=== PATIENT | female | born 1985 | race Caucasian/White ===

== ENCOUNTER 2018-09-16 11:59 | Inpatient (IN) | payer MEDICAID ==
[2018-09-16] MEDS ORDERED: Nalbuphine 10 MG/1 ML Vial IVPUSH PRN (12:18)
[2018-09-16] MEDS ORDERED: Ondansetron 4 MG/2 ML SDV IVPUSH PRN (12:18)
[2018-09-16] MEDS ORDERED: Sodium Chloride 0.9% 10 ML Syringe FLUSH PRN (12:18)
[2018-09-16] MEDS ORDERED: Oxytocin/Lactated Ringers 10 UNIT/1,000 ML BAG IV SCH ×2 (12:30)
--- NOTE | 2018-09-16 12:40 | PCM.LDHP ---
L&D History of Present Illness - General Date of Service: 09/16/18 Admit Problem/Dx: Patient Status Order with Admit Dx/Problem 09/16/18 12:18 Patient Status [ADT] Routine Admission Diagnosis/Problem Admission Diagnosis/Problem Normal in third trimester Source of Information: Patient History Limitations: Reports: No Limitations - History of Present Illness Introduction:: Patient is a 32 y/o at 39 0/7 wks who presents for elective IOL. Doing well this . No issues or concerns. Notes good FM. No other issues. 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: , Therapeutic : 4 Para: 2 LMP (Approximate): Psychiatric History: Reports: Anxiety - Infectious Disease History Infectious Disease History: Reports: Herpes (Denies any signs of outbreak) - Past Surgical History Female Surgical History: Reports: Other (See Below) (breast biopsy) Social & Family History - Tobacco Use Smoking Status *Q: Former Smoker Tobacco Use Within Last Twelve Months: Cigarettes - Caffeine Use Caffeine Use: Reports: Coffee - Alcohol Use Alcohol Use History: No - Recreational Drug Use Drug Use in Last 12 Months: No Recreational Drug Type: Reports: Heroin (Last use in 2012) H&P Review of Systems - Review of Systems: Review Of Systems: See Below General: Reports: No Symptoms Pulmonary: Reports: No Symptoms Cardiovascular: Reports: No Symptoms Gastrointestinal: Reports: No Symptoms Genitourinary: Reports: No Symptoms Musculoskeletal: Reports: No Symptoms Psychiatric: Reports: No Symptoms Neurological: Reports: No Symptoms L&D Exam - Exam Exam: See Below - OB Specific Contraction Intensity: Irritability Movement: Active Heart Tones: Present Heart Tones per Min: 140 Heart Rate (FHR) Variability: Moderate (6-25 bmp) Presentation: Vertex - Tejeda Score Tejeda Score Cervix Position: Midposition Tejeda Score Consistency: Soft Tejeda Score Effacement: 51-70% Tejeda Score Dilation: 3-4 cm Tejeda Score Infant's Station: -2 Tejeda Score Total: 8 - Exam General: Alert, Oriented, Cooperative Lungs: Clear to Auscultation, Normal Respiratory Effort Cardiovascular: Regular Rate, Regular Rhythm GI/Abdominal Exam: Soft, Non-Tender Genitourinary: Normal external exam Extremities: Normal Inspection Skin: Warm, Dry, Intact - Problem List (1) 39 weeks gestation of SNOMED Code(s): 28457787 ICD Code: Z3A.39 - 39 WEEKS GESTATION OF Status: Acute Current Visit: Yes (2) complicated by subutex maintenance, antepartum SNOMED Code(s): 26698432 ICD Code: O99.320 - DRUG USE COMPLICATING , UNSPECIFIED TRIMESTER; F11.20 - OPIOID DEPENDENCE, UNCOMPLICATED Status: Acute Current Visit: Yes (3) History of herpes genitalis SNOMED Code(s): 838675265 ICD Code: Z86.19 - PERSONAL HISTORY OF OTHER INFECTIOUS AND PARASITIC DISEASES Status: Acute Current Visit: Yes Problem List Initiated/Reviewed/Updated: Yes Orders Last 24hrs: Active Orders 24 hr Category Date Time Status Patient Status [ADT] Routine ADT 09/16/18 12:18 Ordered Activity as Tolerated [RC] PFP Care 09/16/18 12:18 Ordered Communication Order [RC] ASDIRECTED Care 09/16/18 12:18 Ordered Communication Order [RC] ASDIRECTED Care 09/16/18 12:18 Ordered Communication Order [RC] ASDIRECTED Care 09/16/18 12:18 Ordered Heart Tones [RC] ASDIRECTED Care 09/16/18 12:18 Ordered Non Stress Test [RC] PER UNIT ROUTINE Care 09/16/18 12:18 Ordered Notify Provider [RC] ASDIRECTED Care 09/16/18 12:18 Ordered Notify Provider [RC] PFP Care 09/16/18 12:18 Ordered Notify Provider [RC] PRN Care 09/16/18 12:18 Ordered Peripheral IV Care [RC] . DIRECTED Care 09/16/18 12:18 Ordered Vaginal Exam [RC] ASDIRECTED Care 09/16/18 12:18 Ordered Vital Signs [RC] PER UNIT ROUTINE Care 09/16/18 12:18 Ordered Regular Diet [DIET] Diet 09/16/18 Lunch Ordered CBC W/O DIFF,HEMOGRAM [HEME] Routine Lab 09/16/18 12:18 Ordered RAPID PLASMA REAGIN,RPR [CHEM] Routine Lab 09/16/18 12:18 Ordered TYPE AND SCREEN [BBK] Routine Lab 09/16/18 12:18 Ordered Lactated Ringers [Ringers, Lactated] 1,000 ml Med 09/16/18 12:30 Ordered IV ASDIRECTED Nalbuphine [Nubain] Med 09/16/18 12:18 Ordered 10 mg IVPUSH Q2H PRN Ondansetron [Zofran] Med 09/16/18 12:18 Ordered 4 mg IVPUSH Q4H PRN Oxytocin/Lactated Ringers [Pitocin in LR 10 Units/1,000 Med 09/16/18 12:30 Ordered ML] 10 unit in 1,000 ml IV .CONTINUOUS Oxytocin/Lactated Ringers [Pitocin in LR 10 Units/1,000 Med 09/16/18 12:30 Ordered ML] 10 unit in 1,000 ml IV TITRATE Sodium Chloride 0.9% [Saline Flush] Med 09/16/18 12:18 Ordered 10 ml FLUSH ASDIRECTED PRN Electronic Heart Tones Ext w TOCO [WOMSER] Oth 09/16/18 12:18 Ordered Routine Electronic Heart Tones Internal [WOMSER] Per Unit Oth 09/16/18 12:18 Ordered Routine Peripheral IV Insertion Adult [OM.PC] Routine Oth 09/16/18 12:18 Ordered Resuscitation Status Routine Resus Stat 09/16/18 12:18 Ordered Medication Orders Lactated Ringer's (Ringers, Lactated) 1,000 mls @ 100 mls/hr IV ASDIRECTED ELROY Oxytocin/Lactated Ringer's (Pitocin In Lr 10 Units/1,000 Ml) 10 unit in 1,000 mls @ 500 mls/hr IV .CONTINUOUS ELROY Oxytocin/Lactated Ringer's (Pitocin In Lr 10 Units/1,000 Ml) 10 unit in 1,000 mls @ 12 mls/hr IV TITRATE ELROY; Protocol Nalbuphine HCl (Nubain) 10 mg IVPUSH Q2H PRN PRN Reason: Pain Ondansetron HCl (Zofran) 4 mg IVPUSH Q4H PRN PRN Reason: Nausea/Vomiting Sodium Chloride (Saline Flush) 10 ml FLUSH ASDIRECTED PRN PRN Reason: Keep Vein Open Assessment/Plan Comment:: 32 y/o at 39 0/7 wks who presents for IOL * Labs * GBS negative, no need for antibiotics * Pitocin and AROM for IOL * Denies signs/symptoms of HSV outbreak * Pain management per patient preference * Anticipate * Aware baby will need monitoring for history of Subutex use
[2018-09-16] MEDS: Lactated Ringers 1,000 ML IV SCH ×3 (13:10→18:23)
[2018-09-16] MEDS ORDERED: fentaNYL 100 MCG/2 ML SDV IVPUSH ONE (15:26)
[2018-09-16] MEDS ORDERED: Bupivacaine/fentaNYL/NS 100 ML Bag EPIDUR SCH (15:30)
--- NOTE | 2018-09-16 16:07 | PCM.POSTAN ---
POST ANESTHESIA ASSESSMENT - MENTAL STATUS Mental Status: Alert - RESPIRATORY Respiratory Status: Respiratory Rate WNL, Airway Patent, O2 Saturation Stable - CARDIOVASCULAR CV Status: Pulse Rate WNL, Blood Pressure Stable - GASTROINTESTINAL GI Status: No Symptoms - POST OP HYDRATION Hydration Status: Adequate & Stable
--- NOTE | 2018-09-16 16:07 | PCM.PREANE ---
Preanesthetic Assessment - Anesthesia/Transfusion/Family Hx Anesthesia History: Prior Anesthesia Without Reaction Family History of Anesthesia Reaction: No Transfusion History: No Prior Transfusion(s) Intubation History: Unknown - Review of Systems General: No Symptoms Pulmonary: No Symptoms Cardiovascular: No Symptoms Gastrointestinal: No Symptoms Neurological: No Symptoms Other: Reports: None - Physical Assessment Height: 1.68 m Weight: 78.018 kg Mental Status: Alert & Oriented x3 Airway Class: Mallampati = 2 Dentition: Reports: Normal Dentition ROM/Head Extension: Full Lungs: Clear to Auscultation, Normal Respiratory Effort Cardiovascular: Regular Rate, Regular Rhythm, No Murmurs - Lab Values: Laboratory Last Values WBC 10.70 K/mm3 (3.98-10.04) H 09/16/18 12:36 RBC 4.09 M/mm3 (3.98-5.22) 09/16/18 12:36 Hgb 12.2 gm/L (11.2-15.7) 09/16/18 12:36 Hct 34.6 % (34.1-44.9) 09/16/18 12:36 MCV 84.6 fl (79.4-94.8) 09/16/18 12:36 MCH 29.8 pg (25.6-32.2) 09/16/18 12:36 MCHC 35.3 g/dl (32.2-35.5) 09/16/18 12:36 RDW Std Deviation 45.0 fL (36.4-46.3) 09/16/18 12:36 Plt Count 173 K/mm3 (182-369) L 09/16/18 12:36 MPV 10.1 fl (9.4-12.3) 09/16/18 12:36 Urine Opiates Screen Negative (VPCBWZ=739) 09/16/18 14:08 Ur Buprenorphine Scrn Presumptive positive (CUTOFF=10) 09/16/18 14:08 Ur Oxycodone Screen Negative (KUQ2FE=031) 09/16/18 14:08 Urine Methadone Screen Negative (MDTWCH=383) 09/16/18 14:08 Ur Propoxyphene Screen Negative (YXYBZX=021) 09/16/18 14:08 Ur Barbiturates Screen Negative (WCWTEF=726) 09/16/18 14:08 Ur Tricyclics Screen Negative (QNHIUQ=243) 09/16/18 14:08 Ur Phencyclidine Scrn Negative (CUTOFF=25) 09/16/18 14:08 Ur Amphetamine Screen Negative (IQTHFR=620) 09/16/18 14:08 U Methamphetamines Scrn Negative (OVTRPG=956) 09/16/18 14:08 U Benzodiazepines Scrn Presumptive positive (IVBJUF=137) H 09/16/18 14:08 U Cocaine Metab Screen Negative (EKXLDJ=115) 09/16/18 14:08 U Marijuana (THC) Screen Presumptive positive (CUTOFF=50) H 09/16/18 14:08 Blood Type A NEGATIVE 09/16/18 12:36 Gel Antibody Screen Positive 09/16/18 12:36 - Allergies Allergies/Adverse Reactions: Allergies Allergy/AdvReac Type Severity Reaction Status Date / Time No Known Allergies Allergy Verified 09/16/18 14:08 - Anesthesia Plan Pre-Op Medication Ordered: None - Acknowledgements Anesthesia Type Planned: Epidural Pt an Appropriate Candidate for the Planned Anesthesia: Yes Alternatives and Risks of Anesthesia Discussed w Pt/Guardian: Yes Pt/Guardian Understands and Agrees with Anesthesia Plan: Yes 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: , 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 Psychiatric History: Reports: Anxiety - Infectious Disease History Infectious Disease History: Reports: Herpes (Denies any signs of outbreak) - Past Surgical History Female Surgical History: Reports: Other (See Below) (breast biopsy) - SUBSTANCE USE Smoking Status *Q: Former Smoker Tobacco Use Within Last Twelve Months: Cigarettes Recreational Drug Type: Reports: Heroin (Last use in 2012) - HOME MEDS Home Medications: Home Meds Buprenorphine HCl/Naloxone HCl [Suboxone 4 mg-1 mg Sl Film] 0 mg PO DAILY [History] Nitrofurantoin Macrocrystal [Macrodantin] 100 mg PO BID #10 capsule 02/15/18 [Rx ] clonazePAM [Clonazepam] 1 mg PO DAILY 02/15/18 [History] - CURRENT (IN HOUSE) MEDS Current Meds: Current Medications Fentanyl/Bupivacaine HCl (Fentanyl/Bupivacaine/Ns 2 Mcg-0.125% 100 Ml) 100 ml EPIDUR ASDIRECTED [facility] Last Admin: 09/16/18 15:34 Dose: 100 ml Lactated Ringer's (Ringers, Lactated) 1,000 mls @ 100 mls/hr IV ASDIRECTED ELROY Last Admin: 09/16/18 15:54 Dose: 100 mls/hr Oxytocin/Lactated Ringer's (Pitocin In Lr 10 Units/1,000 Ml) 10 unit in 1,000 mls @ 500 mls/hr IV .CONTINUOUS ELROY Oxytocin/Lactated Ringer's (Pitocin In Lr 10 Units/1,000 Ml) 10 unit in 1,000 mls @ 12 mls/hr IV TITRATE ELROY; Protocol Last Titration: 09/16/18 16:01 Dose: 6 munits/min, 36 mls/hr Nalbuphine HCl (Nubain) 10 mg IVPUSH Q2H PRN PRN Reason: Pain Ondansetron HCl (Zofran) 4 mg IVPUSH Q4H PRN PRN Reason: Nausea/Vomiting Sodium Chloride (Saline Flush) 10 ml FLUSH ASDIRECTED PRN PRN Reason: Keep Vein Open Discontinued Medications Fentanyl (Sublimaze) 100 mcg IVPUSH ONETIME ONE Stop: 09/16/18 15:27 Last Admin: 09/16/18 15:34 Dose: 100 mcg
[2018-09-16] MEDS ORDERED: Ampicillin 2 GM in Sodium Chloride 0.9% 100 ML IV ONE (20:00)
--- NOTE | 2018-09-16 20:06 | PCM.PNLD ---
Labor Progress Note - VS & Meds Vital Signs: Last Vital Signs Temp 36.8 C 09/16/18 12:18 Pulse 91 09/16/18 12:18 Resp 16 09/16/18 12:18 BP 117/73 09/16/18 12:18 Pulse Ox Active Medications: Current Medications Fentanyl/Bupivacaine HCl (Fentanyl/Bupivacaine/Ns 2 Mcg-0.125% 100 Ml) 100 ml EPIDUR ASDIRECTED ELROY Last Admin: 09/16/18 15:34 Dose: 100 ml Lactated Ringer's (Ringers, Lactated) 1,000 mls @ 100 mls/hr IV ASDIRECTED ELROY Last Admin: 09/16/18 18:23 Dose: 100 mls/hr Oxytocin/Lactated Ringer's (Pitocin In Lr 10 Units/1,000 Ml) 10 unit in 1,000 mls @ 500 mls/hr IV .CONTINUOUS ELROY Oxytocin/Lactated Ringer's (Pitocin In Lr 10 Units/1,000 Ml) 10 unit in 1,000 mls @ 12 mls/hr IV TITRATE ELROY; Protocol Last Titration: 09/16/18 17:51 Dose: 12 munits/min, 72 mls/hr Ampicillin Sodium 2 gm/ Sodium (Chloride) 100 mls @ 200 mls/hr IV ONETIME ONE Stop: 09/16/18 20:29 Ampicillin Sodium 1 gm/ Sodium (Chloride) 100 mls @ 200 mls/hr IV Q4H ELROY Nalbuphine HCl (Nubain) 10 mg IVPUSH Q2H PRN PRN Reason: Pain Ondansetron HCl (Zofran) 4 mg IVPUSH Q4H PRN PRN Reason: Nausea/Vomiting Last Admin: 09/16/18 18:33 Dose: 4 mg Sodium Chloride (Saline Flush) 10 ml FLUSH ASDIRECTED PRN PRN Reason: Keep Vein Open Discontinued Medications Fentanyl (Sublimaze) 100 mcg IVPUSH ONETIME ONE Stop: 09/16/18 15:27 Last Admin: 09/16/18 15:34 Dose: 100 mcg - Uterine Contractions Uterine Monitoring Mode: External [place] Contraction Intensity: Moderate Uterine Resting Tone: Soft - Monitoring Monitor Mode: External Ultrasound Heart Rate (FHR) Baseline: 135 Heart Rate (FHR) Variability: Moderate (6-25 bmp) Accelerations: Present, 15x15 Decelerations: Early Strip Review: Category I - Vaginal Exam Dilation (cm): 7-8 Effacement (Percent): 80 Station: -2 Cervical Position: Midposition - Labor Progress (Free Text) Labor Progress: Doing well. Comfortable with epidural in place. Pitocin at 12. Nursing just noted that patient previously reported to be GBS negative by initial nursing member, but is in fact GBS positive. Apologized to patient for this error. Will write an incident report. Antibiotics to be started now. Reviewed implications with patient
--- NOTE | 2018-09-16 23:04 | PCM.DEL ---
L & D Note - General Info Date of Service: 09/16/18 - Delivery Note Labor: Induced by ARM, Induced by Oxytocin Delivery Outcome: Livebirth Infant Delivery Method: Spontaneous Vaginal Delivery-Single Delivery Mode: Spontaneous Presentation: Left Occiput Anterior (PO) Nuchal Cord: None Anesthesia Type: Epidural Amniotic Fluid Description: Clear Episiotomy Type: None Laceration: None Placenta: Intact, Spontaneous Estimated Blood Loss: 200 [place]: Bulb Syringe, Stimulated, Warmed, Slinger Used, Warmer Used Delivery Comments (Free Text/Narrative):: Patient found to be complete and began pushing. With maternal pushing effort head delivered from an PO presentation. With gentle downward traction the shoulders and body to deliver. placed on maternal abdomen. Cord clamped and cut. Cord blood obtained. Placenta allowed time to separate and expelled intact. Inspection of the perineum showed no lacerations. - General Info Date of Service: 09/16/18 - Patient Data Vitals - Most Recent: Last Vital Signs Temp 36.8 C 09/16/18 12:18 Pulse 91 09/16/18 12:18 Resp 16 09/16/18 12:18 BP 117/73 09/16/18 12:18 Pulse Ox Weight - Most Recent: 78.018 kg I&O - Last 24 Hours: Intake & Output 09/16/18 09/16/18 09/17/18 14:59 22:59 06:59 Intake Total 2000 Output Total 600 Balance 1400 Lab Results Last 24 Hours: Laboratory Results - last 24 hr 09/16/18 09/16/18 09/16/18 Range/Units 12:36 12:36 12:36 WBC 10.70 H (3.98-10.04) K/mm3 RBC 4.09 (3.98-5.22) M/mm3 Hgb 12.2 (11.2-15.7) gm/L Hct 34.6 (34.1-44.9) % MCV 84.6 (79.4-94.8) fl MCH 29.8 (25.6-32.2) pg MCHC 35.3 (32.2-35.5) g/dl RDW Std Deviation 45.0 (36.4-46.3) fL Plt Count 173 L (182-369) K/mm3 MPV 10.1 (9.4-12.3) fl Urine Opiates Screen (FJGHBF=795) Ur Buprenorphine Scrn (CUTOFF=10) Ur Oxycodone Screen (RPJ8IA=589) Urine Methadone Screen (ZSVTOC=866) Ur Propoxyphene Screen (JRGEOP=946) Ur Barbiturates Screen (XRCLTI=203) Ur Tricyclics Screen (ZOFSMA=257) Ur Phencyclidine Scrn (CUTOFF=25) Ur Amphetamine Screen (WPABAX=882) U Methamphetamines Scrn (NTGRSV=949) U Benzodiazepines Scrn (YPSCNO=321) U Cocaine Metab Screen (HVLTFZ=413) U Marijuana (THC) Screen (CUTOFF=50) RPR Non-reactive (NONREACTIVE) Blood Type A NEGATIVE Gel Antibody Screen Positive 09/16/18 Range/Units 14:08 WBC (3.98-10.04) K/mm3 RBC (3.98-5.22) M/mm3 Hgb (11.2-15.7) gm/L Hct (34.1-44.9) % MCV (79.4-94.8) fl MCH (25.6-32.2) pg MCHC (32.2-35.5) g/dl RDW Std Deviation (36.4-46.3) fL Plt Count (182-369) K/mm3 MPV (9.4-12.3) fl Urine Opiates Screen Negative (NAADBC=202) Ur Buprenorphine Scrn Presumptive positive (CUTOFF=10) Ur Oxycodone Screen Negative (NBQ6IZ=185) Urine Methadone Screen Negative (UONJLK=168) Ur Propoxyphene Screen Negative (PNLLJA=086) Ur Barbiturates Screen Negative (PCUPNP=248) Ur Tricyclics Screen Negative (HFYAQY=346) Ur Phencyclidine Scrn Negative (CUTOFF=25) Ur Amphetamine Screen Negative (ATAMSL=144) U Methamphetamines Scrn Negative (FMDKLZ=033) U Benzodiazepines Scrn Presumptive positive H (MOUCXZ=888) U Cocaine Metab Screen Negative (MMTNQF=259) U Marijuana (THC) Screen Presumptive positive H (CUTOFF=50) RPR (NONREACTIVE) Blood Type Gel Antibody Screen Med Orders - Current: Current Medications Fentanyl/Bupivacaine HCl (Fentanyl/Bupivacaine/Ns 2 Mcg-0.125% 100 Ml) 100 ml EPIDUR ASDIRECTED ELROY Last Admin: 09/16/18 15:34 Dose: 100 ml Lactated Ringer's (Ringers, Lactated) 1,000 mls @ 100 mls/hr IV ASDIRECTED ELROY Last Admin: 09/16/18 18:23 Dose: 100 mls/hr Oxytocin/Lactated Ringer's (Pitocin In Lr 10 Units/1,000 Ml) 10 unit in 1,000 mls @ 500 mls/hr IV .CONTINUOUS ELROY Oxytocin/Lactated Ringer's (Pitocin In Lr 10 Units/1,000 Ml) 10 unit in 1,000 mls @ 12 mls/hr IV TITRATE ELROY; Protocol Last Titration: 09/16/18 17:51 Dose: 12 munits/min, 72 mls/hr Ampicillin Sodium 1 gm/ Sodium (Chloride) 100 mls @ 200 mls/hr IV Q4H ELROY Nalbuphine HCl (Nubain) 10 mg IVPUSH Q2H PRN PRN Reason: Pain Ondansetron HCl (Zofran) 4 mg IVPUSH Q4H PRN PRN Reason: Nausea/Vomiting Last Admin: 09/16/18 18:33 Dose: 4 mg Sodium Chloride (Saline Flush) 10 ml FLUSH ASDIRECTED PRN PRN Reason: Keep Vein Open Discontinued Medications Fentanyl (Sublimaze) 100 mcg IVPUSH ONETIME ONE Stop: 09/16/18 15:27 Last Admin: 09/16/18 15:34 Dose: 100 mcg Ampicillin Sodium 2 gm/ Sodium (Chloride) 100 mls @ 200 mls/hr IV ONETIME ONE Stop: 09/16/18 20:29 Last Admin: 09/16/18 20:05 Dose: 200 mls/hr - Problem List & Annotations (1) 39 weeks gestation of SNOMED Code(s): 46139842 Code(s): Z3A.39 - 39 WEEKS GESTATION OF Status: Acute Current Visit: Yes (2) complicated by subutex maintenance, antepartum SNOMED Code(s): 66062814 Code(s): O99.320 - DRUG USE COMPLICATING , UNSPECIFIED TRIMESTER; F11.20 - OPIOID DEPENDENCE, UNCOMPLICATED Status: Acute Current Visit: Yes (3) History of herpes genitalis SNOMED Code(s): 360798886 Code(s): Z86.19 - PERSONAL HISTORY OF OTHER INFECTIOUS AND PARASITIC DISEASES Status: Acute Current Visit: Yes (4) Vaginal delivery SNOMED Code(s): 321453857 Code(s): O80 - ENCOUNTER FOR FULL-TERM UNCOMPLICATED DELIVERY Status: Acute Current Visit: Yes - Problem List Review Problem List Initiated/Reviewed/Updated: Yes - My Orders Last 24 Hours: My Active Orders 09/16/18 12:18 Patient Status [ADT] Routine Activity as Tolerated [RC] PFP Communication Order [RC] ASDIRECTED Communication Order [RC] ASDIRECTED Communication Order [RC] ASDIRECTED Heart Tones [RC] ASDIRECTED Non Stress Test [RC] PER UNIT ROUTINE Notify Provider [RC] ASDIRECTED Notify Provider [RC] PFP Notify Provider [RC] PRN Peripheral IV Care [RC] . DIRECTED Vaginal Exam [RC] ASDIRECTED Vital Signs [RC] PER UNIT ROUTINE Nalbuphine [Nubain] 10 mg IVPUSH Q2H PRN Ondansetron [Zofran] 4 mg IVPUSH Q4H PRN Sodium Chloride 0.9% [Saline Flush] 10 ml FLUSH ASDIRECTED PRN Electronic Heart Tones Ext w TOCO [WOMSER] Routine Electronic Heart Tones Internal [WOMSER] Per Unit Routine Peripheral IV Insertion Adult [OM.PC] Routine Resuscitation Status Routine 09/16/18 12:30 Lactated Ringers [Ringers, Lactated] 1,000 ml IV ASDIRECTED Oxytocin/Lactated Ringers [Pitocin in LR 10 Units/1,000 ML] 10 unit in 1,000 ml IV .CONTINUOUS Oxytocin/Lactated Ringers [Pitocin in LR 10 Units/1,000 ML] 10 unit in 1,000 ml IV TITRATE 09/16/18 12:36 ANTIBODY IDENTIFICATION [BBK] Routine TYPE AND SCREEN [BBK] Routine 09/16/18 14:08 BENZODIAZEPINES CONF, UR Routine CANNABINOID (THC) CONFIRM, UR Routine 09/16/18 16:42 Consult to Case Management/Coconut Candy Maker [CONS] Routine 09/16/18 Lunch Regular Diet [DIET] 09/17/18 00:00 Ampicillin 1 gm Sodium Chloride 0.9% [Normal Saline] 100 ml IV Q4H - Assessment Assessment:: 32 y/o G4 now P3013 PPD#0 from at 39 0/7 wks - Plan Plan:: * Routine cares * Encourage breast feeding * Aware baby will need monitoring for history of Subutex use * Discharge home in 2 days
[2018-09-16] MEDS ORDERED: Witch Hazel Medicated Pads 40/Jar TOP PRN (23:47)
[2018-09-16] MEDS ORDERED: Lanolin 100% Cream 7 GM Tube TOP PRN (23:47)
[2018-09-16] MEDS ORDERED: Benzocaine/Menthol 20%-0.5% Spray 56 GM Canister TOP PRN (23:47)
[2018-09-17] MEDS ORDERED: Ampicillin 1 GM in Sodium Chloride 0.9% 100 ML IV SCH ×2
[2018-09-17] MEDS: Ibuprofen 600 MG Tab PO PRN ×4 (00:15→20:06)
[2018-09-17] MEDS: Docusate Sodium 100 MG Cap PO PRN ×2 (00:15→12:31)
[2018-09-17] MEDS: Acetaminophen 325 MG Tab PO PRN ×3 (03:26→14:18)
[2018-09-17] MEDS ORDERED: Non-Formulary Medication 1 Each (Buprenorphine Hcl/Naloxone Hcl [Suboxone 4 Mg-1 Mg Sl Fil PO SCH (09:00)
--- NOTE | 2018-09-17 09:47 | PCM48HPAN ---
Post Anesthesia Note - EVALUATION WITHIN 48HRS OF ANESTHETIC Vital Signs in Normal Range: Yes Patient Participated in Evaluation: Yes Respiratory Function Stable: Yes Airway Patent: Yes Cardiovascular Function Stable: Yes Hydration Status Stable: Yes Pain Control Satisfactory: Yes Nausea and Vomiting Control Satisfactory: Yes Mental Status Recovered: Yes Pulse Rate: 74 Resp Rate: 16 Temperature: 36.3 C Blood Pressure: 101/57
--- NOTE | 2018-09-17 10:39 | PCM.PNPP ---
- General Info Date of Service: 09/17/18 Functional Status: Reports: Pain Controlled, Tolerating Diet, Ambulating, Urinating - Review of Systems General: Reports: No Symptoms Pulmonary: Reports: No Symptoms Cardiovascular: Reports: No Symptoms Gastrointestinal: Reports: No Symptoms Genitourinary: Reports: No Symptoms Musculoskeletal: Reports: No Symptoms Neurological: Reports: No Symptoms - Patient Data Vital Signs - Most Recent: Last Vital Signs Temp 36.3 C 09/17/18 09:46 Pulse 74 09/17/18 09:46 Resp 16 09/17/18 09:46 BP 101/57 L 09/17/18 09:46 Pulse Ox 96 09/17/18 08:40 Weight - Most Recent: 78.018 kg I&O - Last 24 Hours: Intake & Output 09/16/18 09/17/18 09/17/18 22:59 06:59 14:59 Intake Total 2000 2600 Output Total 600 Balance 1400 2600 Lab Results - Last 24 Hours: Laboratory Results - last 24 hr 09/16/18 09/16/18 09/16/18 Range/Units 12:36 12:36 12:36 WBC 10.70 H (3.98-10.04) K/mm3 RBC 4.09 (3.98-5.22) M/mm3 Hgb 12.2 (11.2-15.7) gm/L Hct 34.6 (34.1-44.9) % MCV 84.6 (79.4-94.8) fl MCH 29.8 (25.6-32.2) pg MCHC 35.3 (32.2-35.5) g/dl RDW Std Deviation 45.0 (36.4-46.3) fL Plt Count 173 L (182-369) K/mm3 MPV 10.1 (9.4-12.3) fl Urine Opiates Screen (ZNHEBO=434) Ur Buprenorphine Scrn (CUTOFF=10) Ur Oxycodone Screen (JXN5TV=042) Urine Methadone Screen (AKAURW=635) Ur Propoxyphene Screen (SJSGVK=418) Ur Barbiturates Screen (DJBMHL=752) Ur Tricyclics Screen (DEAHZY=944) Ur Phencyclidine Scrn (CUTOFF=25) Ur Amphetamine Screen (NRYJUU=293) U Methamphetamines Scrn (IESCGP=659) U Benzodiazepines Scrn (WCEAXQ=602) U Cocaine Metab Screen (MDVVFM=931) U Marijuana (THC) Screen (CUTOFF=50) RPR Non-reactive (NONREACTIVE) Blood Type A NEGATIVE Gel Antibody Screen Positive 09/16/18 Range/Units 14:08 WBC (3.98-10.04) K/mm3 RBC (3.98-5.22) M/mm3 Hgb (11.2-15.7) gm/L Hct (34.1-44.9) % MCV (79.4-94.8) fl MCH (25.6-32.2) pg MCHC (32.2-35.5) g/dl RDW Std Deviation (36.4-46.3) fL Plt Count (182-369) K/mm3 MPV (9.4-12.3) fl Urine Opiates Screen Negative (XVJFNK=773) Ur Buprenorphine Scrn Presumptive positive (CUTOFF=10) Ur Oxycodone Screen Negative (SMJ9BU=391) Urine Methadone Screen Negative (BANAQM=696) Ur Propoxyphene Screen Negative (PQTGWY=241) Ur Barbiturates Screen Negative (ZGEYUA=311) Ur Tricyclics Screen Negative (LFISNJ=146) Ur Phencyclidine Scrn Negative (CUTOFF=25) Ur Amphetamine Screen Negative (LHUXSB=684) U Methamphetamines Scrn Negative (TDILPB=447) U Benzodiazepines Scrn Presumptive positive H (TPZAEC=294) U Cocaine Metab Screen Negative (LSLVOH=429) U Marijuana (THC) Screen Presumptive positive H (CUTOFF=50) RPR (NONREACTIVE) Blood Type Gel Antibody Screen Med Orders - Current: Current Medications Acetaminophen (Tylenol) 650 mg PO Q4H PRN PRN Reason: mild pain or fever Last Admin: 09/17/18 08:49 Dose: 650 mg Benzocaine/Menthol (Dermoplast Pain Relief [place]) 0 gm TOP ASDIRECTED PRN PRN Reason: Perineal Comfort Measure Last Admin: 09/17/18 00:18 Dose: 1 canister Docusate Sodium (Colace) 100 mg PO BID PRN PRN Reason: Constipation Last Admin: 09/17/18 00:15 Dose: 100 mg Emollient Ointment (Lansinoh Hpa) 0 gm TOP ASDIRECTED PRN PRN Reason: Sore Nipples Ibuprofen (Motrin) 600 mg PO Q6H PRN PRN Reason: Mild pain or fever Last Admin: 09/17/18 06:13 Dose: 600 mg Non-Formulary Medication (Buprenorphine Hcl/Naloxone Hcl [Suboxone 4 Mg-1 Mg Sl Film]) 8 mg PO DAILY [facility] Annie Guan (Nora) 1 pad TOP ASDIRECTED PRN PRN Reason: Perineal Comfort Measure Last Admin: 09/17/18 00:18 Dose: 1 tub Discontinued Medications Bupivacaine HCl (Sensorcaine-Mpf 0.25%) 10 ml .ROUTE .STK-MED ONE Stop: 09/17/19 00:01 Fentanyl (Sublimaze) 100 mcg IVPUSH ONETIME ONE Stop: 09/16/18 15:27 Last Admin: 09/16/18 15:34 Dose: 100 mcg Fentanyl/Bupivacaine HCl (Fentanyl/Bupivacaine/Ns 2 Mcg-0.125% 100 Ml) 100 ml EPIDUR ASDIRECTED [facility] Last Admin: 09/16/18 15:34 Dose: 100 ml Lactated Ringer's (Ringers, Lactated) 1,000 mls @ 100 mls/hr IV ASDIRECTED [facility] Last Admin: 09/16/18 18:23 Dose: 100 mls/hr Oxytocin/Lactated Ringer's (Pitocin In Lr 10 Units/1,000 Ml) 10 unit in 1,000 mls @ 500 mls/hr IV .CONTINUOUS [facility] Oxytocin/Lactated Ringer's (Pitocin In Lr 10 Units/1,000 Ml) 10 unit in 1,000 mls @ 12 mls/hr IV TITRATE [facility]; Protocol Last Titration: 09/16/18 22:50 Dose: 500 mls/hr Ampicillin Sodium 2 gm/ Sodium (Chloride) 100 mls @ 200 mls/hr IV ONETIME ONE Stop: 09/16/18 20:29 Last Admin: 09/16/18 20:05 Dose: 200 mls/hr Ampicillin Sodium 1 gm/ Sodium (Chloride) 100 mls @ 200 mls/hr IV Q4H [facility] Nalbuphine HCl (Nubain) 10 mg IVPUSH Q2H PRN PRN Reason: Pain Ondansetron HCl (Zofran) 4 mg IVPUSH Q4H PRN PRN Reason: Nausea/Vomiting Last Admin: 09/16/18 18:33 Dose: 4 mg Sodium Chloride (Saline Flush) 10 ml FLUSH ASDIRECTED PRN PRN Reason: Keep Vein Open - Infant Interaction Disposition, : [place] in Room with Family Infant Interaction: Holding Infant Feeding: Attempted ; Nursed Fair/Poor Support Person: Significant Other - Recovery Exam Fundal Tone: Firm Fundal Level: 1 Fingerbreadths Above Umbilicus Fundal Placement: Midline Lochia Amount: Small Lochia Color: Rubra/Red Perineum Description: Intact, Minimal Bruising/Swelling Episiotomy/Laceration: None Bladder Status: Nonpalpable Urinary Elimination: Other (see below) Other Urinary Elimination, : Bedpan placed; pt. voided - Exam General: Alert, Oriented, Cooperative GI/Abdominal Exam: Soft, Non-Tender Extremities: Normal Inspection Skin: Warm, Dry, Intact - Problem List & Annotations (1) 39 weeks gestation of SNOMED Code(s): 78615257 Code(s): Z3A.39 - 39 WEEKS GESTATION OF Status: Acute Current Visit: Yes (2) complicated by subutex maintenance, antepartum SNOMED Code(s): 06026542 Code(s): O99.320 - DRUG USE COMPLICATING , UNSPECIFIED TRIMESTER; F11.20 - OPIOID DEPENDENCE, UNCOMPLICATED Status: Acute Current Visit: Yes (3) History of herpes genitalis SNOMED Code(s): 248636456 Code(s): Z86.19 - PERSONAL HISTORY OF OTHER INFECTIOUS AND PARASITIC DISEASES Status: Acute Current Visit: Yes (4) Vaginal delivery SNOMED Code(s): 426664631 Code(s): O80 - ENCOUNTER FOR FULL-TERM UNCOMPLICATED DELIVERY Status: Acute Current Visit: Yes - Problem List Review Problem List Initiated/Reviewed/Updated: Yes - My Orders Last 24 Hours: My Active Orders 09/16/18 12:18 Heart Tones [RC] ASDIRECTED Vaginal Exam [RC] ASDIRECTED Resuscitation Status Routine 09/16/18 12:36 ANTIBODY IDENTIFICATION [BBK] Routine TYPE AND SCREEN [BBK] Routine 09/16/18 14:08 BENZODIAZEPINES CONF, UR Routine CANNABINOID (THC) CONFIRM, UR Routine 09/16/18 23:47 Activity as Tolerated [RC] PER UNIT ROUTINE Vital Signs [RC] 21,03,09,15 Acetaminophen [Tylenol] 650 mg PO Q4H PRN Benzocaine/Menthol [Dermoplast Pain Relief [place]] See Dose Instructions TOP ASDIRECTED PRN Docusate Sodium [Colace] 100 mg PO BID PRN Ibuprofen [Motrin] 600 mg PO Q6H PRN Lanolin [Lansinoh HPA] See Dose Instructions TOP ASDIRECTED PRN Witch Freida [Tucks] 1 pad TOP ASDIRECTED PRN Assess Lochia [WOMSER] Per Unit Routine Assess Uterine Involution [WOMSER] Per Unit Routine Breast Pump [WOMSER] Per Unit Routine Heat Therapy [OM.PC] PRN Ice Therapy [OM.PC] Per Unit Routine Perineal Care [OM.PC] Per Unit Routine Peripheral IV Discontinue [OM.PC] Routine Sitz Bath [OM.PC] Per Unit Routine 09/16/18 Dinner Regular Diet [DIET] 09/17/18 09:00 Buprenorphine HCl/Naloxone HCl [Suboxone 4 mg-1 mg Sl Film] 8 mg PO DAILY 09/17/18 23:47 Heat Therapy [OM.PC] PRN - Assessment Assessment:: 32 y/o G4 now P3013 PPD#1 from at 39 0/7 wks - Plan Plan:: * Routine cares * Encourage breast feeding * Patient states she lost her Subutex Rx. Not in her bag for the hospital. Will send Rx for the two days (today and tomorrow) that patient will be in- patient. Will need further refills from her regular prescribing physician * Baby Rh negative, no need for Rhogam * Discharge home tomorrow
[2018-09-18] MEDS: Ibuprofen 600 MG Tab PO PRN (03:49)
--- NOTE | 2018-09-18 06:20 | PCM.DCSUM1 ---
Discharge Summary - Discharge Data Discharge Date: 09/18/18 Discharge Disposition: Home, Self-Care 01 Condition: Good - Discharge Diagnosis/Problem(s) (1) 39 weeks gestation of SNOMED Code(s): 09994948 ICD Code: Z3A.39 - 39 WEEKS GESTATION OF Status: Acute Current Visit: Yes (2) complicated by subutex maintenance, antepartum SNOMED Code(s): 62496686 ICD Code: O99.320 - DRUG USE COMPLICATING , UNSPECIFIED TRIMESTER; F11.20 - OPIOID DEPENDENCE, UNCOMPLICATED Status: Acute Current Visit: Yes (3) History of herpes genitalis SNOMED Code(s): 406165667 ICD Code: Z86.19 - PERSONAL HISTORY OF OTHER INFECTIOUS AND PARASITIC DISEASES Status: Acute Current Visit: Yes (4) Vaginal delivery SNOMED Code(s): 207875679 ICD Code: O80 - ENCOUNTER FOR FULL-TERM UNCOMPLICATED DELIVERY Status: Acute Current Visit: Yes - Patient Summary/Data Complications: None Consults: None Recommended Follow-up Testing/Procedures: Follow up in 3 weeks for check Hospital Course: 32 y/o at 39 0/7 wks gestation who presented for IOL. This was done with pitocin and AROM. She progressed well and underwent an uncomplicated . See delivery note. she did well and was discharged on PPD#2 - Patient Instructions Diet: Regular Diet as Tolerated Activity: As Tolerated Activity, Other: Pelvic rest for 6 weeks Driving: May Drive Today Showering/Bathing: May Shower Showering/Bathing, Other: May bathe Notify Provider of: Fever, Increased Pain, Swelling and Redness, Drainage, Nausea and/or Vomiting - Discharge Plan *PRESCRIPTION DRUG MONITORING PROGRAM REVIEWED*: Not Applicable *COPY OF PRESCRIPTION DRUG MONITORING REPORT IN PATIENT ARCHIE: Not Applicable Home Medications: Home Meds Buprenorphine HCl/Naloxone HCl [Suboxone 4 mg-1 mg Sl Film] 8 mg PO DAILY [History] Docusate Sodium [Colace] 100 mg PO BID PRN cap 09/17/18 [Rx] Ibuprofen [Motrin] 600 mg PO Q6H PRN tablet 09/17/18 [Rx] Patient Handouts: Steps to Quit Smoking Referrals: Raquel Hernandez MD [Physician] - (3 weeks for check) - Discharge Summary/Plan Comment DC Time >30 min.: No - Patient Data Vitals - Most Recent: Last Vital Signs Temp 36.8 C 09/18/18 03:50 Pulse 64 09/18/18 03:50 Resp 16 09/18/18 03:50 BP 98/72 09/18/18 03:50 Pulse Ox 98 09/18/18 03:50 Weight - Most Recent: 78.018 kg I&O - Last 24 hours: Intake & Output 09/17/18 09/17/18 09/18/18 14:59 22:59 06:59 Intake Total 420 320 Balance 420 320 Med Orders - Current: Current Medications Acetaminophen (Tylenol) 650 mg PO Q4H PRN PRN Reason: mild pain or fever Last Admin: 09/17/18 14:18 Dose: 650 mg Benzocaine/Menthol (Dermoplast Pain Relief [place]) 0 gm TOP ASDIRECTED PRN PRN Reason: Perineal Comfort Measure Last Admin: 09/17/18 00:18 Dose: 1 canister Docusate Sodium (Colace) 100 mg PO BID PRN PRN Reason: Constipation Last Admin: 09/17/18 12:31 Dose: 100 mg Emollient Ointment (Lansinoh Hpa) 0 gm TOP ASDIRECTED PRN PRN Reason: Sore Nipples Ibuprofen (Motrin) 600 mg PO Q6H PRN PRN Reason: Mild pain or fever Last Admin: 09/18/18 03:49 Dose: 600 mg Buprenorphine 8mg (Tablet Own Med ) 0 each PO DAILY [facility] Annie Guan (Nora) 1 pad TOP ASDIRECTED PRN PRN Reason: Perineal Comfort Measure Last Admin: 09/17/18 00:18 Dose: 1 tub Discontinued Medications Bupivacaine HCl (Sensorcaine-Mpf 0.25%) 10 ml .ROUTE .STK-MED ONE Stop: 09/17/19 00:01 Fentanyl (Sublimaze) 100 mcg IVPUSH ONETIME ONE Stop: 09/16/18 15:27 Last Admin: 09/16/18 15:34 Dose: 100 mcg Fentanyl/Bupivacaine HCl (Fentanyl/Bupivacaine/Ns 2 Mcg-0.125% 100 Ml) 100 ml EPIDUR ASDIRECTED [facility] Last Admin: 09/16/18 15:34 Dose: 100 ml Lactated Ringer's (Ringers, Lactated) 1,000 mls @ 100 mls/hr IV ASDIRECTED [facility] Last Admin: 09/16/18 18:23 Dose: 100 mls/hr Oxytocin/Lactated Ringer's (Pitocin In Lr 10 Units/1,000 Ml) 10 unit in 1,000 mls @ 500 mls/hr IV .CONTINUOUS [facility] Oxytocin/Lactated Ringer's (Pitocin In Lr 10 Units/1,000 Ml) 10 unit in 1,000 mls @ 12 mls/hr IV TITRATE [facility]; Protocol Last Titration: 09/16/18 22:50 Dose: 500 mls/hr Ampicillin Sodium 2 gm/ Sodium (Chloride) 100 mls @ 200 mls/hr IV ONETIME ONE Stop: 09/16/18 20:29 Last Admin: 09/16/18 20:05 Dose: 200 mls/hr Ampicillin Sodium 1 gm/ Sodium (Chloride) 100 mls @ 200 mls/hr IV Q4H [facility] Nalbuphine HCl (Nubain) 10 mg IVPUSH Q2H PRN PRN Reason: Pain Non-Formulary Medication (Buprenorphine Hcl/Naloxone Hcl [Suboxone 4 Mg-1 Mg Sl Film]) 8 mg PO DAILY [facility] Last Admin: 09/17/18 22:42 Dose: Not Given Ondansetron HCl (Zofran) 4 mg IVPUSH Q4H PRN PRN Reason: Nausea/Vomiting Last Admin: 09/16/18 18:33 Dose: 4 mg Sodium Chloride (Saline Flush) 10 ml FLUSH ASDIRECTED PRN PRN Reason: Keep Vein Open
--- NOTE | 2018-09-18 06:20 | PCM.PNPP ---
- General Info Date of Service: 09/18/18 Functional Status: Reports: Pain Controlled, Tolerating Diet, Ambulating, Urinating - Review of Systems General: Reports: No Symptoms Pulmonary: Reports: No Symptoms Cardiovascular: Reports: No Symptoms Gastrointestinal: Reports: Abdominal Pain (some intense cramping) Genitourinary: Reports: No Symptoms Musculoskeletal: Reports: No Symptoms Neurological: Reports: No Symptoms - Patient Data Vital Signs - Most Recent: Last Vital Signs Temp 36.8 C 09/18/18 03:50 Pulse 64 09/18/18 03:50 Resp 16 09/18/18 03:50 BP 98/72 09/18/18 03:50 Pulse Ox 98 09/18/18 03:50 Weight - Most Recent: 78.018 kg I&O - Last 24 Hours: Intake & Output 09/17/18 09/17/18 09/18/18 14:59 22:59 06:59 Intake Total 420 320 Balance 420 320 Med Orders - Current: Current Medications Acetaminophen (Tylenol) 650 mg PO Q4H PRN PRN Reason: mild pain or fever Last Admin: 09/17/18 14:18 Dose: 650 mg Benzocaine/Menthol (Dermoplast Pain Relief [place]) 0 gm TOP ASDIRECTED PRN PRN Reason: Perineal Comfort Measure Last Admin: 09/17/18 00:18 Dose: 1 canister Docusate Sodium (Colace) 100 mg PO BID PRN PRN Reason: Constipation Last Admin: 09/17/18 12:31 Dose: 100 mg Emollient Ointment (Lansinoh Hpa) 0 gm TOP ASDIRECTED PRN PRN Reason: Sore Nipples Ibuprofen (Motrin) 600 mg PO Q6H PRN PRN Reason: Mild pain or fever Last Admin: 09/18/18 03:49 Dose: 600 mg Buprenorphine 8mg (Tablet Own Med ) 0 each PO DAILY [facility] Annie Guan (Tucks) 1 pad TOP ASDIRECTED PRN PRN Reason: Perineal Comfort Measure Last Admin: 09/17/18 00:18 Dose: 1 tub Discontinued Medications Bupivacaine HCl (Sensorcaine-Mpf 0.25%) 10 ml .ROUTE .STK-MED ONE Stop: 09/17/19 00:01 Fentanyl (Sublimaze) 100 mcg IVPUSH ONETIME ONE Stop: 09/16/18 15:27 Last Admin: 09/16/18 15:34 Dose: 100 mcg Fentanyl/Bupivacaine HCl (Fentanyl/Bupivacaine/Ns 2 Mcg-0.125% 100 Ml) 100 ml EPIDUR ASDIRECTED [facility] Last Admin: 09/16/18 15:34 Dose: 100 ml Lactated Ringer's (Ringers, Lactated) 1,000 mls @ 100 mls/hr IV ASDIRECTED [facility] Last Admin: 09/16/18 18:23 Dose: 100 mls/hr Oxytocin/Lactated Ringer's (Pitocin In Lr 10 Units/1,000 Ml) 10 unit in 1,000 mls @ 500 mls/hr IV .CONTINUOUS [facility] Oxytocin/Lactated Ringer's (Pitocin In Lr 10 Units/1,000 Ml) 10 unit in 1,000 mls @ 12 mls/hr IV TITRATE [facility]; Protocol Last Titration: 09/16/18 22:50 Dose: 500 mls/hr Ampicillin Sodium 2 gm/ Sodium (Chloride) 100 mls @ 200 mls/hr IV ONETIME ONE Stop: 09/16/18 20:29 Last Admin: 09/16/18 20:05 Dose: 200 mls/hr Ampicillin Sodium 1 gm/ Sodium (Chloride) 100 mls @ 200 mls/hr IV Q4H [facility] Nalbuphine HCl (Nubain) 10 mg IVPUSH Q2H PRN PRN Reason: Pain Non-Formulary Medication (Buprenorphine Hcl/Naloxone Hcl [Suboxone 4 Mg-1 Mg Sl Film]) 8 mg PO DAILY [facility] Last Admin: 09/17/18 22:42 Dose: Not Given Ondansetron HCl (Zofran) 4 mg IVPUSH Q4H PRN PRN Reason: Nausea/Vomiting Last Admin: 09/16/18 18:33 Dose: 4 mg Sodium Chloride (Saline Flush) 10 ml FLUSH ASDIRECTED PRN PRN Reason: Keep Vein Open - Infant Interaction Infant Disposition, : [place] in Room with Family Infant Interaction: Holding Feeding: Attempted ; Nursed Fair/Poor Support Person: Significant Other - Recovery Exam Fundal Tone: Firm Fundal Level: 2 Fingerbreadths Below Umbilicus Fundal Placement: Midline Lochia Amount: Scant, Small Lochia Color: Rubra/Red Perineum Description: Intact, Minimal Bruising/Swelling Episiotomy/Laceration: None Bladder Status: Voiding Urinary Elimination: Other (see below) Other Urinary Elimination, : Bedpan placed; pt. voided - Exam General: Alert, Oriented, Cooperative GI/Abdominal Exam: Soft, Non-Tender Extremities: Normal Inspection Skin: Warm, Dry, Intact - Problem List & Annotations (1) 39 weeks gestation of SNOMED Code(s): 94844209 Code(s): Z3A.39 - 39 WEEKS GESTATION OF Status: Acute Current Visit: Yes (2) complicated by subutex maintenance, antepartum SNOMED Code(s): 72347813 Code(s): O99.320 - DRUG USE COMPLICATING , UNSPECIFIED TRIMESTER; F11.20 - OPIOID DEPENDENCE, UNCOMPLICATED Status: Acute Current Visit: Yes (3) History of herpes genitalis SNOMED Code(s): 645719310 Code(s): Z86.19 - PERSONAL HISTORY OF OTHER INFECTIOUS AND PARASITIC DISEASES Status: Acute Current Visit: Yes (4) Vaginal delivery SNOMED Code(s): 433498436 Code(s): O80 - ENCOUNTER FOR FULL-TERM UNCOMPLICATED DELIVERY Status: Acute Current Visit: Yes - Problem List Review Problem List Initiated/Reviewed/Updated: Yes - My Orders Last 24 Hours: My Active Orders 09/17/18 23:47 Heat Therapy [OM.PC] PRN 09/18/18 06:19 Ready for Discharge [RC] PER UNIT ROUTINE 09/18/18 09:00 Non-Formulary Medication [NF Drug] See Dose Instructions PO DAILY - Assessment Assessment:: 32 y/o G4 now P3013 PPD#2 from at 39 0/7 wks - Plan Plan:: * Routine cares * Encourage breast feeding * Patient given refill for Subutex for days in hospital, yesterday and today. Notes, however, she did a lesser dose yesterday. Encouraged to take medication as Rx'd. Can follow up with regular prescribing physician * Baby Rh negative, no need for Rhogam * Discharge home today
[2018-09-18] MEDS: Docusate Sodium 100 MG Cap PO PRN (08:03)
[2018-09-18] MEDS: Acetaminophen 325 MG Tab PO PRN (08:16)
[2018-09-18] MEDS ORDERED: BUPRENORPHINE 8 MG PO SCH (09:00)
[2019-09-17] MEDS ORDERED: Bupivacaine 0.25% 10 ML SDV ONE
== END 2018-09-18 11:30 | disposition home or self-care (01) | DRG 806 ==
LOC: JD.OBCHECK 11:59 → JD.OB 12:04 → OBSVTOIN 22:49 → JD.OB 22:50
PROVIDERS: ADMIT Obstetrics & Gynecology; ATTEND Obstetrics & Gynecology
PROC: 10E0XZZ Delivery of Products of Conception, External Approach (ICD-10-PCS; principal; 2018-09-16)
PROC: 10907ZC Drainage of Amniotic Fluid, Therapeutic from Products of Conception, Via Natural or Artificial Opening (ICD-10-PCS; 2018-09-16)
PROC: 3E033VJ Introduction of Other Hormone into Peripheral Vein, Percutaneous Approach (ICD-10-PCS; 2018-09-16)
PROC: 4A1HXCZ Monitoring of Products of Conception, Cardiac Rate, External Approach (ICD-10-PCS; 2018-09-16)
DX: O99.324 Drug use complicating childbirth (principal); F11.20 Opioid dependence, uncomplicated; Z37.0 Single live birth; Z3A.39 39 weeks gestation of pregnancy
CPT/HCPCS: 01967; 36415; 51702; 59025; 59409; 80306; 80346; 85027; 86592; 86850; 86870; 86900; 86901; A9270-GY; G0480; J0290; J2405; J2590; J3010; J3490; J7030; J7120